=== PATIENT | female | born 1955 | race African-American/Black ===

== ENCOUNTER 2017-11-04 18:06 | Emergency (ER) | payer MEDICARE, OTHER ==
[~2017-11-04] VITALS: Ht 162.6 cm; Wt 90.7 kg
[~2017-11-04 18:06] MED LIST: KEFLEX500 MG ORAL; NORCO 5-325 TA1 EACH ORAL
[2017-11-04 18:30] VITALS: BP 133/65
[2017-11-04 18:47] LABS: BASOPHILS % (AUTO) 0.8 % (0.0-2.0); EOSINOPHILS % (AUTO) 1.9 % (0.0-3.0); LYMPHOCYTES % (AUTO) 19.7 % (20.0-45.0); MEAN CORPUSCULAR HEMOGLOBIN 25.1 PG (27.0-31.0); MEAN CORPUSCULAR HGB CONC 30.6 G/DL (32.0-36.0); MEAN CORPUSCULAR VOLUME 82 FL (80-99); MEAN PLATELET VOLUME 7.3 FL (6.5-10.1); MONOCYTES % (AUTO) 4.7 % (1.0-10.0); PLATELET COUNT 212 K/UL (150-450); RED BLOOD COUNT 4.51 M/UL (4.20-5.40); RED CELL DISTRIBUTION WIDTH 13.6 % (11.6-14.8); WHITE BLOOD COUNT 6.7 K/UL (4.8-10.8)
[2017-11-04] MEDS ORDERED: LEVOTHYROXINE100 MCG ORAL (18:55)
[2017-11-04] MEDS ORDERED: POTASSIUM CHLO20 ME1 ORAL (18:55)
[2017-11-04] MEDS ORDERED: NEXIUM40 MG ORAL (18:55)
[2017-11-04] MEDS ORDERED: LOSARTAN-HCTZ1 EAC1 ORAL (18:57)
[2017-11-04] MEDS ORDERED: PRAVASTATIN SOD80 M1 ORAL (18:57)
[2017-11-04] MEDS ORDERED: AMLODIPINE BESY10 MG ORAL (18:57)
[2017-11-04] MEDS ORDERED: GABAPENTIN300 MG ORAL (18:57)
[2017-11-04] MEDS ORDERED: DETROL2 MG ORAL (18:58)
[2017-11-04 19:05] LABS: ANION GAP 5 mmol/L (5-15); CARBON DIOXIDE 32 MMOL/L (21-32); CHLORIDE 102 MMOL/L (98-107); GLOMERULAR FILTRATION RATE > 60 mL/min (>60); POTASSIUM 2.9 MMOL/L (3.5-5.1); SODIUM 139 MMOL/L (136-145)
[2017-11-04 19:19] LABS: ALANINE AMINOTRANSFERASE 25 U/L (12-78); ALBUMIN/GLOBULIN RATIO 0.9 (1.0-2.7); ASPARTATE AMINO TRANSFERASE 22 U/L (15-37); CKMB 1.5 NG/ML (0.0-3.6); TOTAL PROTEIN 7.6 G/DL (6.4-8.2)
[2017-11-04] MEDS ORDERED: ALBUTEROL SULF8.5 GM INH (22:19)
[2017-11-04 22:27] VITALS: BP 133/65
--- NOTE | 2017-11-05 08:38 | Diagnostic Imaging Report ---
Indication: Shortness of breath Technique: XRAY Chest 1v Comparison: None Findings: Borderline cardiomegaly. Mediastinal contours are sharp. There is no focal consolidation, pneumothorax or pleural effusion. Osseous structures demonstrate no acute abnormality. Degenerative changes are seen in the thoracic spine. Impression: Borderline cardiomegaly. No radiographic evidence of acute cardiopulmonary disease.
--- NOTE | 2017-11-05 09:05 | Diagnostic Imaging Report ---
Indication: Shortness of breath Technique: CTA Chest w Contrast. CT angiogram of the chest was obtained utilizing automated exposure control after bolus initiation of IV contrast. Axial, coronal and sagittal reformats obtained. 3-D reconstructions were created on a stand-alone workstation and submitted to PACS. CT dose: Total DLP 1218.17 mGycm; CTDI vol 38.34 mGy Comparison: None Findings: There is adequate opacification of the pulmonary arteries. There is no pulmonary embolism. The main pulmonary artery is normal in size. Thoracic aorta is normal in caliber. No evidence of aortic dissection. Dependent atelectasis noted posteriorly in the lower lobes. There is a 4 mm lung nodule in the left upper lobe (series 8 image 29). 3 mm nodule is noted in the left lung apex (series 8 image 15). There is a pleural-based nodule in the right upper lobe (series 8 image 13. Additional solid nodule in the right lower lobe measures up to 3.5 mm (series 8 image #46). There is no focal consolidation suggest pneumonia. No pleural effusion or pneumothorax. Heart is within upper limits for normal size. No pericardial effusion. No pathologically enlarged adenopathy. Thyroid is unremarkable in appearance. Images through the upper abdomen demonstrate questionable hepatomegaly and hepatic steatosis. There is prominence of the common bile duct and central intrahepatic ducts. If there is history of prior cholecystectomy, this may be postsurgical in etiology. Nodular changes seen in the thoracic spine. No acute osseous abnormality is seen. Impression: No evidence of pulmonary embolism. No thoracic aortic aneurysm or dissection. Question hepatomegaly and hepatic steatosis. Biliary ductal ectasia. If there is history of cholecystectomy this may be postsurgical. The liver and gallbladder are not completely evaluated. Correlate clinically. Consider dedicated imaging as clinically indicated. Multiple indeterminate pulmonary nodules. The largest one is solid and measures 5 mm. For multiple nodules <6 mm in a patient of unknown risk, with the largest one being solid, for a low-risk patient, recommend no follow-up. For a high-risk patient, CT at 12 months is optional with stronger consideration if there is suspicious nodule morphology and/or upper lobe location. See citation below This corresponds with the statrad preliminary report. The CT scanner at [facility] is accredited by the [employer] and the scans are performed using protocols designed to limit radiation exposure to as low as reasonably achievable to attain images of sufficient resolution adequate for diagnostic evaluation. Armando Narayan et al. Guidelines for Management of Incidental Pulmonary Nodules Detected on CT Images: From the Fleischner Society 2017. Radiology. 2017 [place];284(1):228-243.
--- NOTE | 2017-11-06 14:29 | Cardiology Report ---
APPROVED REPORT EKG Measurement Heart [id number] CO [id number] Normal sinus rhythm Normal ECG
--- NOTE | 2017-11-07 20:19 | Emergency Room Report ---
History of Present Illness General Chief Complaint: Chest Pain Source: Patient, EMS Present Illness HPI Patient is a 62-year-old female who presented after increased chest pain. This had been present for approximately one month. Patient gradual onset of symptoms. Patient was having some increased difficulty breathing. She had been having increased nonproductive cough. She reports having some improvement with her inhalers. She had prior history of COPD. As reported having some increased discomfort. She reportedly uses oxygen 2 L at home. She denied any fever. Allergies: Coded Allergies: ASPIRIN (Verified Allergy, Unknown, 06/05/15) Patient History Past Medical History: see triage record Reviewed Nursing Documentation: PMH: Agreed, PSxH: Agreed Nursing Documentation-PMH Past Medical History: No History, Except For Hx Cardiac Problems: No - HYPOTHYROIDS Hx Hypertension: Yes Hx COPD: Yes Hx Gastrointestinal Problems: Yes - Hep C Review of Systems All Other Systems: negative except mentioned in HPI Physical Exam Vital Signs Date Time Temp Pulse Resp B/P (MAP) Pulse Ox O2 Delivery O2 Flow Rate FiO2 11/04/17 18:03 99.3 80 16 128/70 99 Room Air 11/04/17 18:30 96 Sp02 EP Interpretation: reviewed, normal General Appearance: normal inspection, well appearing, no apparent distress, alert, GCS 15 Head: atraumatic ENT: normal ENT inspection, hearing grossly normal, normal voice Neck: normal inspection, full range of motion, supple, no bony tend Respiratory: normal inspection, lungs clear, no respiratory distress, no retraction, wheezing Cardiovascular #1: regular rate, rhythm, no edema Gastrointestinal: normal inspection, normal bowel sounds, non tender, soft, no guarding, no hernia Genitourinary: no CVA tenderness Musculoskeletal: normal inspection, back normal, normal range of motion Neurologic: normal inspection, alert, oriented x3, responsive, straight ruling machine operator III-XII nml as tested, speech normal Psychiatric: normal inspection, judgement/insight normal, mood/affect normal Skin: normal inspection, normal color, no rash Medical Decision Making Diagnostic Impression: Primary Impression: Muscular pain Additional Impression: COPD (chronic obstructive pulmonary disease) ER Course .Patient presented for chest pain.Differential diagnosis included but was not limited to acute coronary syndrome, pulmonary embolism, pneumonia, aortic dissection, shingles, pneumothorax, aortic dissection, esophageal rupture, pericarditis. Because of complexity of patient's case laboratory testing and imaging studies were ordered.CT of the chest was ordered of the patient's complaints. laboratory studies were unremarkable. CTA read by radiology showed multiple lung nodules. There is no evidence of pulmonary embolism or aortic dissection noted. The patient was given breathing treatments with improvement in her pain and discomfort. The patient is advised to follow up with primary care doctor in 1-2 days. Patient is advised to return if any worsening condition or if any changes in status that are concerning. This report is dictated with [employer] business services manager software which may occasionally lead to discrepancies related to use of this software. Labs Test 11/04/17 18:39 White Blood Count 6.7 K/UL (4.8-10.8) Red Blood Count 4.51 M/UL (4.20-5.40) Hemoglobin 11.3 G/DL (12.0-16.0) Hematocrit 36.9 % (37.0-47.0) Mean Corpuscular Volume 82 FL (80-99) Mean Corpuscular Hemoglobin 25.1 PG (27.0-31.0) Mean Corpuscular Hemoglobin Concent 30.6 G/DL (32.0-36.0) Red Cell Distribution Width 13.6 % (11.6-14.8) Platelet Count 212 K/UL (150-450) Mean Platelet Volume 7.3 FL (6.5-10.1) Neutrophils (%) (Auto) 73.0 % (45.0-75.0) Lymphocytes (%) (Auto) 19.7 % (20.0-45.0) Monocytes (%) (Auto) 4.7 % (1.0-10.0) Eosinophils (%) (Auto) 1.9 % (0.0-3.0) Basophils (%) (Auto) 0.8 % (0.0-2.0) D-Dimer 0.52 mg/L FEU (0.00-0.49) Sodium Level 139 MMOL/L (136-145) Potassium Level 2.9 MMOL/L (3.5-5.1) Chloride Level 102 MMOL/L (98-107) Carbon Dioxide Level 32 MMOL/L (21-32) Anion Gap 5 mmol/L (5-15) Blood Urea Nitrogen 12 mg/dL (7-18) Creatinine 1.0 MG/DL (0.55-1.30) Estimat Glomerular Filtration Rate > 60 mL/min (>60) Glucose Level 162 MG/DL (74-106) Calcium Level 9.0 MG/DL (8.5-10.1) Total Bilirubin 0.3 MG/DL (0.2-1.0) Aspartate Amino Transf (AST/SGOT) 22 U/L (15-37) Alanine Aminotransferase (ALT/SGPT) 25 U/L (12-78) Alkaline Phosphatase 62 U/L (46-116) Total Creatine Kinase 81 U/L (26-308) Creatine Kinase MB 1.5 NG/ML (0.0-3.6) Creatine Kinase MB Relative Index 1.8 Troponin I 0.000 ng/mL (0.000-0.056) Pro-B-Type Natriuretic Peptide 14 pg/mL (0-125) Total Protein 7.6 G/DL (6.4-8.2) Albumin 3.5 G/DL (3.4-5.0) Globulin 4.1 g/dL Albumin/Globulin Ratio 0.9 (1.0-2.7) Last Vital Signs Date Time Temp Pulse Resp B/P (MAP) Pulse Ox O2 Delivery O2 Flow Rate FiO2 11/04/17 22:27 99.3 75 17 133/65 96 Room Air 96 Status: improved Disposition: HOME, SELF-CARE Condition: Stable Scripts Albuterol Sulfate* (ALBUTEROL SULFATE MDI*) 8.5 Gm Hfa.aer.ad 2 PUFF INH Q4H, #1 INH 0 Refills Prov: Shon Beltran 11/04/17 Patient Instructions: Nonspecific Chest Pain Shon Beltran Nov 07, 2017 20:19
== END 2017-11-04 22:30 | disposition home or self-care (01) ==
LOC: EDBD 18:06 → EMR 18:43
DX: R07.89 Other chest pain (principal); J44.9 Chronic obstructive pulmonary disease, unspecified; I10 Essential (primary) hypertension; E03.9 Hypothyroidism, unspecified; R91.8 Other nonspecific abnormal finding of lung field
CPT/HCPCS: 36415; 71010; 71275; 80053; 82550; 82553; 83880; 84484; 85025; 85379; 93005; 99284; Q9967

== ENCOUNTER 2017-11-06 13:04 | Emergency (ER) | payer MEDICARE, OTHER ==
[~2017-11-06] VITALS: Ht 167.6 cm; Wt 139.7 kg
[~2017-11-06 13:04] MED LIST changes: +ALBUTEROL SULF8.5 GM INH; +AMLODIPINE BESY10 MG ORAL; +DETROL2 MG ORAL; +GABAPENTIN300 MG ORAL; +LEVOTHYROXINE100 MCG ORAL; +LOSARTAN-HCTZ1 EAC1 ORAL; +NEXIUM40 MG ORAL; +POTASSIUM CHLO20 ME1 ORAL; +PRAVASTATIN SOD80 M1 ORAL
[2017-11-06] MEDS ORDERED: Albuterol/Ipratropium 3ml neb HHN ONE (13:30)
[2017-11-06 13:45] VITALS: BP 112/52
[2017-11-06 14:34] LABS: BASOPHILS % (AUTO) 0.6 % (0.0-2.0); EOSINOPHILS % (AUTO) 1.2 % (0.0-3.0); LYMPHOCYTES % (AUTO) 19.4 % (20.0-45.0); MEAN CORPUSCULAR HEMOGLOBIN 25.8 PG (27.0-31.0); MEAN CORPUSCULAR HGB CONC 31.5 G/DL (32.0-36.0); MEAN CORPUSCULAR VOLUME 82 FL (80-99); MEAN PLATELET VOLUME 7.6 FL (6.5-10.1); MONOCYTES % (AUTO) 4.6 % (1.0-10.0); NEUTROPHILS % (AUTO) 74.3 % (45.0-75.0); PLATELET COUNT 217 K/UL (150-450); RED BLOOD COUNT 4.57 M/UL (4.20-5.40); RED CELL DISTRIBUTION WIDTH 13.8 % (11.6-14.8); WHITE BLOOD COUNT 5.9 K/UL (4.8-10.8)
[2017-11-06 14:45] LABS: ANION GAP 7 mmol/L (5-15); CALCIUM 9.3 MG/DL (8.5-10.1); CARBON DIOXIDE 32 MMOL/L (21-32); CHLORIDE 101 MMOL/L (98-107); CREATININE 0.9 MG/DL (0.55-1.30); GLOMERULAR FILTRATION RATE > 60 mL/min (>60); POTASSIUM 3.2 MMOL/L (3.5-5.1); PROTHROMBIN TIME 10.3 SEC (9.30-11.50); SODIUM 140 MMOL/L (136-145)
[2017-11-06 14:58] LABS: ALANINE AMINOTRANSFERASE 25 U/L (12-78); ALBUMIN/GLOBULIN RATIO 0.9 (1.0-2.7); ASPARTATE AMINO TRANSFERASE 14 U/L (15-37); CKMB 0.5 NG/ML (0.0-3.6); TOTAL PROTEIN 7.4 G/DL (6.4-8.2)
[2017-11-06 15:05] VITALS: BP 120/80
[2017-11-06] MEDS ORDERED: PREDNISONE20 MG ORAL (15:36)
[2017-11-06 16:13] VITALS: BP 122/82
--- NOTE | 2017-11-07 13:07 | Diagnostic Imaging Report ---
Indication: Dyspnea Comparison: 11/04/2017 A single view chest radiograph was obtained. Findings: Bones are osteopenic. Cardiac silhouette is prominent but stable. Pulmonary vascularity is somewhat prominent but stable. IMPRESSION: No acute disease
--- NOTE | 2017-11-07 20:22 | Emergency Room Report ---
History of Present Illness General Chief Complaint: Chest Pain Source: Patient Present Illness HPI Patient is a 62-year-old female who presented after increased chest pain. Patient reports having similar symptoms. The patient recently been seen by me after similar episode. Patient was having improvement in the pain after using inhaler. She denies any fever. She reports having use of oxygen at home. She states that she may be having some similar symptoms at this time due to increased stress do to her dying approximately a year ago. She denies any suicidal thoughts. She denied productive cough or leg swelling. Allergies: Coded Allergies: ASPIRIN (Verified Allergy, Unknown, 06/05/15) Patient History Past Medical History: see triage record Reviewed Nursing Documentation: PMH: Agreed, PSxH: Agreed Nursing Documentation-PMH Hx Cardiac Problems: Yes - High cholesterol Hx Hypertension: Yes Hx COPD: Yes Hx Gastrointestinal Problems: Yes - Hep C Review of Systems All Other Systems: negative except mentioned in HPI Physical Exam Vital Signs Date Time Temp Pulse Resp B/P (MAP) Pulse Ox O2 Delivery O2 Flow Rate FiO2 11/06/17 12:52 97.5 98 20 132/74 98 Room Air 11/06/17 13:38 21 Sp02 EP Interpretation: reviewed, normal General Appearance: normal inspection, well appearing, no apparent distress, alert, GCS 15 Head: atraumatic ENT: normal ENT inspection, hearing grossly normal, normal voice Neck: normal inspection, full range of motion, supple, no bony tend Respiratory: normal inspection, lungs clear, normal breath sounds, no respiratory distress, no retraction, no wheezing Cardiovascular #1: regular rate, rhythm, no edema Gastrointestinal: normal inspection, normal bowel sounds, non tender, soft, no guarding, no hernia Genitourinary: no CVA tenderness Musculoskeletal: normal inspection, back normal, normal range of motion Neurologic: normal inspection, alert, oriented x3, responsive, mounter hand III-XII nml as tested, motor strength/tone normal, speech normal Psychiatric: normal inspection, judgement/insight normal, mood/affect normal Skin: normal inspection, normal color, no rash Medical Decision Making Diagnostic Impression: Primary Impression: COPD (chronic obstructive pulmonary disease) Additional Impression: Lung nodule, multiple ER Course Patient presented for chest pain. Differential diagnosis included but was not limited to acute coronary syndrome, pulmonary embolism, pneumonia, aortic dissection, shingles, pneumothorax, aortic dissection, esophageal rupture, pericarditis. Because of complexity of patient's case laboratory testing and imaging studies were ordered. Patient given breathing treatment with improvement in her symptoms. The chest x -ray was unremarkable . The patient is advised to follow up with primary care doctor in 1-2 days. The patient given prescription for prednisone. Patient is advised to return if any worsening condition or if any changes in status that are concerning. This report is dictated with [employer] drop board man software which may occasionally lead to discrepancies related to use of this software. Labs Test 11/06/17 14:10 White Blood Count 5.9 K/UL (4.8-10.8) Red Blood Count 4.57 M/UL (4.20-5.40) Hemoglobin 11.8 G/DL (12.0-16.0) Hematocrit 37.5 % (37.0-47.0) Mean Corpuscular Volume 82 FL (80-99) Mean Corpuscular Hemoglobin 25.8 PG (27.0-31.0) Mean Corpuscular Hemoglobin Concent 31.5 G/DL (32.0-36.0) Red Cell Distribution Width 13.8 % (11.6-14.8) Platelet Count 217 K/UL (150-450) Mean Platelet Volume 7.6 FL (6.5-10.1) Neutrophils (%) (Auto) 74.3 % (45.0-75.0) Lymphocytes (%) (Auto) 19.4 % (20.0-45.0) Monocytes (%) (Auto) 4.6 % (1.0-10.0) Eosinophils (%) (Auto) 1.2 % (0.0-3.0) Basophils (%) (Auto) 0.6 % (0.0-2.0) Prothrombin Time 10.3 SEC (9.30-11.50) Prothromb Time International Ratio 1.0 (0.9-1.1) Activated Partial Thromboplast Time 26 SEC (23-33) Sodium Level 140 MMOL/L (136-145) Potassium Level 3.2 MMOL/L (3.5-5.1) Chloride Level 101 MMOL/L (98-107) Carbon Dioxide Level 32 MMOL/L (21-32) Anion Gap 7 mmol/L (5-15) Blood Urea Nitrogen 11 mg/dL (7-18) Creatinine 0.9 MG/DL (0.55-1.30) Estimat Glomerular Filtration Rate > 60 mL/min (>60) Glucose Level 157 MG/DL (74-106) Calcium Level 9.3 MG/DL (8.5-10.1) Total Bilirubin 0.3 MG/DL (0.2-1.0) Aspartate Amino Transf (AST/SGOT) 14 U/L (15-37) Alanine Aminotransferase (ALT/SGPT) 25 U/L (12-78) Alkaline Phosphatase 64 U/L (46-116) Total Creatine Kinase 68 U/L (26-308) Creatine Kinase MB 0.5 NG/ML (0.0-3.6) Creatine Kinase MB Relative Index 0.7 Troponin I 0.000 ng/mL (0.000-0.056) Pro-B-Type Natriuretic Peptide 23 pg/mL (0-125) Total Protein 7.4 G/DL (6.4-8.2) Albumin 3.4 G/DL (3.4-5.0) Globulin 4.0 g/dL Albumin/Globulin Ratio 0.9 (1.0-2.7) Last Vital Signs Date Time Temp Pulse Resp B/P (MAP) Pulse Ox O2 Delivery O2 Flow Rate FiO2 11/06/17 16:13 97.5 93 21 122/82 100 Room Air 21 Status: improved Disposition: HOME, SELF-CARE Condition: Stable Scripts Prednisone* (PREDNISONE*) 20 Mg Tablet 40 MG ORAL DAILY, #10 TAB Prov: Shon Beltran 11/06/17 Referrals: NOT CHOSEN IPA/MD,REFERRING (PCP) Patient Instructions: Nonspecific Chest Pain Shon Beltran Nov 07, 2017 20:22
--- NOTE | 2017-11-12 00:30 | Cardiology Report ---
APPROVED REPORT EKG Measurement Heart [id number] Sinus rhythm with 1st degree AV block Otherwise normal ECG
== END 2017-11-06 16:13 | disposition home or self-care (01) ==
LOC: EDBD 13:04 → EMR 13:10
DX: J44.9 Chronic obstructive pulmonary disease, unspecified (principal); R91.8 Other nonspecific abnormal finding of lung field; I10 Essential (primary) hypertension
CPT/HCPCS: 36415; 71010; 80053; 82550; 82553; 83880; 84484; 85025; 85610; 85730; 93005; 94640; 94664; 99284; J7620; J8499

== ENCOUNTER 2019-05-12 16:40 | Emergency (ER) | payer MEDICARE, OTHER ==
[~2019-05-12] VITALS: Ht 167.6 cm; Wt 131.5 kg
[~2019-05-12 16:40] MED LIST changes: +PREDNISONE20 MG ORAL
[2019-05-12] MEDS ORDERED: Ketorolac 30mg Inj IV ONE (17:00)
--- NOTE | 2019-05-12 17:03 | Emergency Room Report ---
History of Present Illness General Chief Complaint: Nausea, Vomiting, and Diarrhea Source: Patient (Cheryl Jones) Present Illness HPI 63-year-old female with history of uncontrolled diabetes here complaining of 2 days of nonbloody diarrhea and 1 day of multiple bouts of nonbloody emesis. Patient also complains of 6 out of 10 epigastric and left upper quadrant pain x2 days. Patient reports that started any new medication as well as recent travel. Patient reports that about a year ago she was first diagnosed with diabetes however noncompliant with taking her metformin all the time. Denies history of alcohol intake, drug use, smoking. Denies recent URI, fever and chills. Patient is actively vomiting and lethargic. Denies chest pain, palpitation, shortness of breath, urinary frequency, dizziness, headache, blurry vision, and all other associated symptoms. (Cheryl Jones) Allergies: Coded Allergies: ASPIRIN (Verified Allergy, Unknown, 06/05/15) Patient History Past Medical History: see triage record Past Surgical History: unable to obtain Pertinent Family History: none Now: No Immunizations: UTD Reviewed Nursing Documentation: PMH: Agreed; PSxH: Agreed (Cheryl Jones) Nursing Documentation-PMH Past Medical History: No History, Except For Hx Cardiac Problems: No - HYPOTHYROIDS Hx Hypertension: Yes Hx COPD: Yes Hx Gastrointestinal Problems: Yes - Hep C (Cheryl Jones) Review of Systems All Other Systems: negative except mentioned in HPI (Cheryl Jones) Physical Exam Vital Signs Date Time Temp Pulse Resp B/P (MAP) Pulse Ox O2 Delivery O2 Flow Rate FiO2 05/12/19 16:36 98.2 69 16 135/70 (91) 96 Room Air Sp02 EP Interpretation: reviewed, normal General Appearance: alert, GCS 15, mild distress Head: normocephalic, atraumatic Eyes: bilateral eye normal inspection, bilateral eye PERRL ENT: normal ENT inspection, hearing grossly normal, normal pharynx, no angioedema Neck: normal inspection, full range of motion, supple, thyroid normal, no carotid bruits Respiratory: normal inspection, chest non-tender, lungs clear, normal breath sounds, no rhonchi, no wheezing, respiratory distress Cardiovascular #1: normal inspection, normal peripheral pulses, regular rate, rhythm, no edema, no gallop, no murmur Gastrointestinal: no mass, non-distended, no hernia, no pulsatile mass, no rebound, guarding - Epigastric and left upper quadrant, other - Negative McBurney's and Rovsing's negative Muñoz's Rectal: deferred Genitourinary: no CVA tenderness Musculoskeletal: normal inspection, back normal Neurologic: normal inspection, alert, oriented x3, responsive, pumping station engineer III-XII nml as tested Psychiatric: normal inspection, judgement/insight normal Skin: normal inspection, normal color, no rash, warm/dry, well hydrated Lymphatic: normal inspection, no adenopathy (Cheryl Jones) Medical Decision Making PA Attestation All my diagnosis and treatment plans were reviewed ad discussed with my supervising physician Dr. Beltran (Cheryl Jones) Diagnostic Impression: Primary Impression: Opiate withdrawal Additional Impressions: Abdominal pain Incomplete RBBB Intractable vomiting ER Course 63-year-old female with history of uncontrolled diabetes here complaining of 2 days of nonbloody diarrhea and 1 day of multiple bouts of nonbloody emesis. Patient also complains of 6 out of 10 epigastric and left upper quadrant pain x2 days. Patient reports that started any new medication as well as recent travel. Patient reports that about a year ago she was first diagnosed with diabetes however noncompliant with taking her metformin all the time. Denies history of alcohol intake, drug use, smoking. Denies recent URI, fever and chills. Patient is actively vomiting and lethargic. Denies chest pain, palpitation, shortness of breath, urinary frequency, dizziness, headache, blurry vision, and all other associated symptoms. Ddx considered but are not limited to: appendicitis, cholycisitis, gastritis, gasthroentritis, UTI, pylonephritis, SBO, diverticulitis, influenza with GI manifestation, OK, abdominal pain due to opiate withdrawal Vital signs: are WNL, pt. is afebrile H&PE are most consistent with: opiate withdrawal and abdominal pain ORDERS: abdominal CT, abdominal pain set, EKG, abdominal US, Zofran, Toradol, Pepcid, NS bolus, ativan, reglan ED INTERVENTIONS: NS bolus, Zofran, Toradol, Pepcid Patient was admited with diagnosis of opiate withdrawal and abdominal pain to under supervision of : Devin pt stable at time of admission glucose 185 (Cheryl Jones) ER Course Patient is a 63-year-old female presented after increased abdominal pain and vomiting. Patient reports having multiple episodes of vomiting and diarrhea. Patient states that she had recently stopped using heroin approximately 2 days ago. She is type II diabetic and takes metformin. She reports having multiple episodes of emesis as well as diarrhea as well as generalized weakness. Patient reports having previous use of methadone. Patient was noted to have some prior history of COPD.Laboratory testing was notable for hypokalemia. EKG showed normal sinus rhythm with a rate of 66 with an incomplete right bundle branch block and nonspecific T wave changes.Patient will be hospitalized due to persistent vomiting and generalized weakness. Labs Test 05/12/19 17:15 05/12/19 18:20 White Blood Count 9.0 K/UL (4.8-10.8) Red Blood Count 5.13 M/UL (4.20-5.40) Hemoglobin 12.9 G/DL (12.0-16.0) Hematocrit 38.2 % (37.0-47.0) Mean Corpuscular Volume 75 FL (80-99) Mean Corpuscular Hemoglobin 25.2 PG (27.0-31.0) Mean Corpuscular Hemoglobin Concent 33.8 G/DL (32.0-36.0) Red Cell Distribution Width 12.5 % (11.6-14.8) Platelet Count 302 K/UL (150-450) Mean Platelet Volume 6.4 FL (6.5-10.1) Neutrophils (%) (Auto) 83.2 % (45.0-75.0) Lymphocytes (%) (Auto) 10.7 % (20.0-45.0) Monocytes (%) (Auto) 4.3 % (1.0-10.0) Eosinophils (%) (Auto) 0.6 % (0.0-3.0) Basophils (%) (Auto) 1.1 % (0.0-2.0) Sodium Level 144 MMOL/L (136-145) Potassium Level 3.2 MMOL/L (3.5-5.1) Chloride Level 104 MMOL/L (98-107) Carbon Dioxide Level 28 MMOL/L (21-32) Anion Gap 12 mmol/L (5-15) Blood Urea Nitrogen 7 mg/dL (7-18) Creatinine 0.9 MG/DL (0.55-1.30) Estimat Glomerular Filtration Rate > 60 mL/min (>60) Glucose Level 185 MG/DL (74-106) Calcium Level 10.2 MG/DL (8.5-10.1) Total Bilirubin 0.4 MG/DL (0.2-1.0) Aspartate Amino Transf (AST/SGOT) 19 U/L (15-37) Alanine Aminotransferase (ALT/SGPT) 20 U/L (12-78) Alkaline Phosphatase 73 U/L (46-116) Creatine Kinase MB 0.7 NG/ML (0.0-3.6) Troponin I 0.000 ng/mL (0.000-0.056) Total Protein 8.0 G/DL (6.4-8.2) Albumin 3.5 G/DL (3.4-5.0) Globulin 4.5 g/dL Albumin/Globulin Ratio 0.8 (1.0-2.7) Lipase 78 U/L (73-393) Serum Alcohol < 3 mg/dL Urine Color Pale yellow Urine Appearance Clear Urine pH 8 (4.5-8.0) Urine Specific [place] 1.010 (1.005-1.035) Urine Protein 1+ (NEGATIVE) Urine Glucose (UA) Negative (NEGATIVE) Urine Ketones Negative (NEGATIVE) Urine Blood Negative (NEGATIVE) Urine Nitrite Negative (NEGATIVE) Urine Bilirubin Negative (NEGATIVE) Urine Urobilinogen Normal MG/DL (0.0-1.0) Urine Leukocyte Esterase 2+ (NEGATIVE) Urine RBC 0 /HPF (0 - 2) Urine WBC 2-4 /HPF (0 - 2) Urine Squamous Epithelial Cells Occasional /LPF Urine Bacteria Occasional /HPF (NONE) Urine Mucus Occasional /LPF Urine Opiates Screen Positive (NEGATIVE) Urine Barbiturates Screen Negative (NEGATIVE) Phencyclidine (PCP) Screen Negative (NEGATIVE) Urine Amphetamines Screen Negative (NEGATIVE) Urine Benzodiazepines Screen Positive (NEGATIVE) Urine Cocaine Screen Negative (NEGATIVE) Urine Marijuana (THC) Screen Negative (NEGATIVE) (Shon Beltran MD) EKG Diagnostic Results Rate: normal Rhythm: NSR ST Segments: no acute changes (Cheryl Jones) Rate: normal Rhythm: NSR ST Segments: no acute changes (Shon Beltran MD) Chest X-Ray Diagnostic Results Chest X-Ray Diagnostic Results : Chest X-Ray Ordered: Yes # of Views/Limited/Complete: 1 View Indication: Other EP Interpretation: Yes PA Xray: Interpretation reviewed, by supervising MD, and agrees with findings. Interpretation: no consolidation, no effusion, no pneumothorax Impression: Other - cardiomegaly and vascular congestion Electronically Signed by: cheryl EDMONDSON Scribe Text Cardiomegaly and vascular congestion (Cheryl Jones) CT/MRI/US Diagnostic Results CT/MRI/US Diagnostic Results : Imaging Test Ordered: CT abdomen no contrast Impression COMPARISON: No relevant prior studies available. FINDINGS: Lung bases: Unremarkable. ABDOMEN: Liver: Mild fatty liver. Gallbladder and bile ducts: No calcified stones. No ductal dilation. Pancreas: Unremarkable. Spleen: Unremarkable. Adrenals: Unremarkable. Kidneys and ureters: Bilateral renal hypodensities, largest measures 19 mm in the right kidney No hydronephrosis or perinephric collection. Stomach and bowel: Colon is collapsed and not well assessed. Correlate clinically if there is any concern for a colitis. PELVIS: Appendix: No findings to suggest acute appendicitis. Bladder: Unremarkable. Reproductive: Hysterectomy. ABDOMEN and PELVIS: Intraperitoneal space: Unremarkable. Bones/joints: No acute fracture. Soft tissues: Unremarkable. Vasculature: Unremarkable. No abdominal aortic aneurysm. Lymph nodes: No enlarged lymph nodes. IMPRESSION: (Cheryl Jones) Last Vital Signs Date Time Temp Pulse Resp B/P (MAP) Pulse Ox O2 Delivery O2 Flow Rate FiO2 05/12/19 16:36 98.2 69 16 135/70 (91) 96 Room Air (Cheryl Jones) Status: unchanged (Shon Beltran MD) Disposition: ADMITTED INPATIENT Condition: Stable Scripts Loperamide Hcl (IMODIUM A-D) 1 Mg/7.5 Ml Liquid 1 MG PO DAILY, #100 ML Prov: Cheryl Jones 05/12/19 Ondansetron (Zofran) 4 Mg Tablet 4 MG ORAL Q6H PRN for Nausea & Vomiting, #20 TAB Prov: Cheryl Jones 05/12/19 Patient Instructions: Opioid Use Disorder Additional Instructions: Follow-up with your pain management doctor for management of your opiate withdrawal take medication as directed you are currently on diazepam that should help you with opiate withdrawal symptoms Cheryl Jones May 12, 2019 17:03 Shon Beltran MD May 12, 2019 20:53
[2019-05-12 17:18] VITALS: BP 144/73
--- NOTE | 2019-05-12 17:19 | NUR ---
ED Nurse Note: Pt BIBA from home due to medial abdominal pain with n/v/d x 2 days, admitted "I shoot heroin a couple days ago". Pain 10/10. Last bowel movement was this morning. Emesis was bile and fluid. AOx4, VSS. Will cont to monitor.
--- NOTE | 2019-05-12 17:36 | NUR ---
ED Nurse Note: X-ray tech at bedside for imaging.
[2019-05-12 17:39] LABS: BASOPHILS % (AUTO) 1.1 % (0.0-2.0); EOSINOPHILS % (AUTO) 0.6 % (0.0-3.0); HEMATOCRIT 38.2 % (37.0-47.0); HEMOGLOBIN 12.9 G/DL (12.0-16.0); LYMPHOCYTES % (AUTO) 10.7 % (20.0-45.0); MEAN CORPUSCULAR VOLUME 75 FL (80-99); MONOCYTES % (AUTO) 4.3 % (1.0-10.0); NEUTROPHILS % (AUTO) 83.2 % (45.0-75.0); PLATELET COUNT 302 K/UL (150-450); RED BLOOD COUNT 5.13 M/UL (4.20-5.40); RED CELL DISTRIBUTION WIDTH 12.5 % (11.6-14.8)
[2019-05-12 17:43] LABS: ANION GAP 12 mmol/L (5-15); BLOOD UREA NITROGEN 7 mg/dL (7-18); CALCIUM 10.2 MG/DL (8.5-10.1); CARBON DIOXIDE 28 MMOL/L (21-32); CHLORIDE 104 MMOL/L (98-107); CREATININE 0.9 MG/DL (0.55-1.30); POTASSIUM 3.2 MMOL/L (3.5-5.1); SODIUM 144 MMOL/L (136-145)
--- NOTE | 2019-05-12 17:44 | NUR ---
ED Nurse Note: Pt down to CT for imaging.
--- NOTE | 2019-05-12 17:52 | Diagnostic Imaging Report ---
EXAM: XR Chest, 1 View CLINICAL HISTORY: ABD PAIN TECHNIQUE: Frontal view of the chest. COMPARISON: No relevant prior studies available. FINDINGS: Lungs: No consolidation. Pleural space: Unremarkable. No pneumothorax. Heart: Cardiomegaly and possibly vascular congestion. Mediastinum: Unremarkable. Bones/joints: No acute fracture. IMPRESSION: Cardiomegaly and possibly vascular congestion.
[2019-05-12] MEDS ORDERED: UNOBMED (17:53)
--- NOTE | 2019-05-12 17:58 | NUR ---
ED Nurse Note: Pt back from CT, no sign of acute distress.
[2019-05-12 18:04] LABS: ALANINE AMINOTRANSFERASE 20 U/L (12-78); ALBUMIN 3.5 G/DL (3.4-5.0); ALBUMIN/GLOBULIN RATIO 0.8 (1.0-2.7); ALKALINE PHOSPHATASE 73 U/L (46-116); ASPARTATE AMINO TRANSFERASE 19 U/L (15-37); BILIRUBIN,TOTAL 0.4 MG/DL (0.2-1.0); CKMB 0.7 NG/ML (0.0-3.6)
--- NOTE | 2019-05-12 18:25 | Diagnostic Imaging Report ---
EXAM: CT Abdomen and Pelvis Without Intravenous Contrast CLINICAL HISTORY: ABD PAIN TECHNIQUE: Axial computed tomography images of the abdomen and pelvis without intravenous contrast. CTDI is 19.51 mGy and DLP is 1055 mGy-cm. One or more of the following dose reduction techniques were used: automated exposure control, adjustment of the mA and/or kV according to patient size, use of iterative reconstruction technique. COMPARISON: No relevant prior studies available. FINDINGS: Lung bases: Unremarkable. ABDOMEN: Liver: Mild fatty liver. Gallbladder and bile ducts: No calcified stones. No ductal dilation. Pancreas: Unremarkable. Spleen: Unremarkable. Adrenals: Unremarkable. Kidneys and ureters: Bilateral renal hypodensities, largest measures 19 mm in the right kidney No hydronephrosis or perinephric collection. Stomach and bowel: Colon is collapsed and not well assessed. Correlate clinically if there is any concern for a colitis. PELVIS: Appendix: No findings to suggest acute appendicitis. Bladder: Unremarkable. Reproductive: Hysterectomy. ABDOMEN and PELVIS: Intraperitoneal space: Unremarkable. Bones/joints: No acute fracture. Soft tissues: Unremarkable. Vasculature: Unremarkable. No abdominal aortic aneurysm. Lymph nodes: No enlarged lymph nodes. IMPRESSION: No acute findings.
[2019-05-12 18:38] LABS: APPEARANCE,URINE CLEAR; BILIRUBIN, URINE NEGATIVE (NEGATIVE); COLOR,URINE PALE YELLOW; GLUCOSE, URINE (UA) NEGATIVE (NEGATIVE); KETONES,URINE NEGATIVE (NEGATIVE); LEUKOCYTE ESTERASE ,URINE 2+ (NEGATIVE); NITRITE,URINE NEGATIVE (NEGATIVE); PH,URINE 8 (4.5-8.0); PROTEIN,URINE 1+ (NEGATIVE); UROBILINOGEN,URINE NORMAL MG/DL (0.0-1.0)
[2019-05-12] MEDS ORDERED: LORazepam 0.5mg tab ORAL ONE (18:45)
[2019-05-12 19:08] VITALS: BP 111/84
[2019-05-12] MEDS ORDERED: ZOFRAN4 M1 ORAL (19:09)
[2019-05-12] MEDS ORDERED: IMODIUM A-1 MG/7.5 M PO (19:09)
--- NOTE | 2019-05-12 19:10 | NUR ---
HAND-OFF: Report given to VITOR Berry.
--- NOTE | 2019-05-12 19:15 | NUR ---
ED Nurse Note: Received report from VITOR Bellamy. Pt awake and c/o abdominal pain 06/30. VSS. Will carry out ER MD's orders and instructions for discharge. Will continue to monitor.
--- NOTE | 2019-05-12 19:40 | NUR ---
ED Nurse Note: Pt refused discharge. Primary ER MD spoke with pt and decided to keep her for admission. Will carry out ER MD's orders and wait for registration to process to determine whether pt will have to be transferred per insurance. Will continue to monitor.
[2019-05-12] MEDS ORDERED: Metoclopramide 10mg/2ml Inj IM ONE (19:45)
[2019-05-12 21:00] VITALS: BP 142/80
--- NOTE | 2019-05-12 21:02 | NUR ---
Face sheet, clinicals and MD dictation faxed to Alysia(immigration case worker) at [phone] as requested.
--- NOTE | 2019-05-12 22:48 | NUR ---
ED Nurse Note: Pt heard retching. Observed pt throwing up yellow, liquid emesis. Pt cleaned and changed. Will notify ER MD and continue to monitor.
[2019-05-12 23:00] VITALS: BP 134/70
[2019-05-13] MEDS ORDERED: LORazepam Inj 2mg/ml 1ml IV ONE
--- NOTE | 2019-05-13 00:47 | NUR ---
ED Nurse Note: Notified pt of hospital choice for transfer and ETA of 0100 for pickup. Will continue to monitor.
[2019-05-13 01:00] VITALS: BP 155/64
--- NOTE | 2019-05-13 01:01 | NUR ---
ED Nurse Note: Gave report to Tracee ADLER at [facility]. Gave her ETA of 0100 but still awaiting pickup arrival. Will continue to monitor.
[2019-05-13 01:30] VITALS: BP 144/70
[2019-05-13 02:12] VITALS: BP 144/70
--- NOTE | 2019-05-13 02:14 | NUR ---
ED Nurse Note: Pt cleared by health care Provider for transfer to [facility]. Transfer instruction packet was given and explained to pt/ambulance personnel and personnel verbalized understanding of teachings. All medical deviecs such as ID band removed. Tracee ADLER at [facility] is aware there is no IV access. Pt is AAO x4 and left with all personal belongings.
== END 2019-05-13 02:14 | disposition short-term general hospital (02) ==
LOC: EDBD 16:40 → EMR 17:06
DX: F11.23 Opioid dependence with withdrawal (principal); R10.9 Unspecified abdominal pain; I45.10 Unspecified right bundle-branch block; R11.10 Vomiting, unspecified; E03.9 Hypothyroidism, unspecified; I10 Essential (primary) hypertension; J44.9 Chronic obstructive pulmonary disease, unspecified; B19.20 Unspecified viral hepatitis C without hepatic coma; E11.9 Type 2 diabetes mellitus without complications; Z88.6 Allergy status to analgesic agent; Z79.84 Long term (current) use of oral hypoglycemic drugs; K76.0 Fatty (change of) liver, not elsewhere classified; Z90.710 Acquired absence of both cervix and uterus
CPT/HCPCS: 36415; 71045; 74176; 80053; 80307; 81003; 82553; 83690; 84484; 85025; 93005; 96361; 96372; 96374; 96375; 99285; G0480; J1885; J2405; J2765; S0028; 80329; J8499